=== PATIENT | male | born 1965 | race African-American/Black ===

== ENCOUNTER 2022-03-15 14:51 | Emergency (ER) | payer MEDICAID ==
[~2022-03-15] VITALS: Ht 175.3 cm; Wt 77.1 kg
[~2022-03-15 14:51] MED LIST: PARO-154 PO
[2022-03-15] MEDS ORDERED: MAG HYDROX/AL HYDROX/SIMETH 30 ML LIQUID UDC PO ONE (15:00)
[2022-03-15] MEDS ORDERED: FAMOTIDINE. 20 MG/2 ML VIAL IV ONE ×2 (15:00→15:06)
--- NOTE | 2022-03-15 15:00 | NUR ---
Pt ambulatory to room 2A, c/o lower abd pain and diarrhea x 2 hrs. Pt has hx of peptic ulcer, states sudden onset of pain today. Pt seen and examined by .
[2022-03-15] MEDS ORDERED: MAG HYDROX/AL HYDROX/SIMETH 30 ML LIQUID UDC ONE (15:06)
[2022-03-15] MEDS ORDERED: KETOROLAC TROMETHAMINE 30 MG INJ IVP ONE (15:15)
[2022-03-15] MEDS ORDERED: KETOROLAC TROMETHAMINE 30 MG INJ ONE (15:16)
[2022-03-15 15:22] LABS: HEMATOCRIT 39.2 % (36.7-47.1); MEAN CORPUSCULAR HEMOGLOBIN 26.4 uug (23.8-33.4); MEAN CORPUSCULAR VOLUME 78.9 fL (73.0-96.2); PLATELET COUNT (AUTO) 240 K/uL (152-348)
[2022-03-15] MEDS ORDERED: MORPHINE SULFATE 4 MG/1 ML DISP.SYRIN IV ONE (15:30)
[2022-03-15] MEDS ORDERED: MORPHINE SULFATE 4 MG/1 ML DISP.SYRIN ONE (15:30)
[2022-03-15 15:31] LABS: CREATININE 0.9 mg/dL (0.6-1.3); POTASSIUM 3.8 mmol/L (3.5-5.1)
[2022-03-15] MEDS ORDERED: SWABABLE VALVE TRANSFER SET EA MC ONE (15:41)
[2022-03-15] MEDS ORDERED: IOHEXOL 300MG/ML 100 ML INFUS..BTL ONE (15:41)
[2022-03-15] MEDS ORDERED: IV NORMAL SALINE 250 ML IV ONE (15:41)
[2022-03-15] MEDS ORDERED: IV NORMAL SALINE 500 ML BAG IV ONE (15:45)
[2022-03-15 15:46] LABS: BILIRUBIN,TOTAL 0.8 mg/dL (0.2-1.0); TOTAL PROTEIN, SERUM 7.6 g/dL (6.4-8.2)
[2022-03-15 18:00] LABS: *BILIRUBIN,URIN NEGATIVE (NEGATIVE); *BLOOD, URINE 3+ (NEGATIVE); *CLARITY,URINE SLIGHTLY CLOUDY (CLEAR); *COLOR,URINE YELLOW (YELLOW); *KETONES,URINE NEGATIVE (NEGATIVE); *UROBILINOGEN,URINE 0.2 E.U./dl (NORMAL); LEUKOCYTE ESTERASE ,URINE NEGATIVE (NEGATIVE); NITRITE, URINE NEGATIVE (NEGATIVE); PH,URINE 8.5 (5.0-8.0); UGLUCOSE NEGATIVE (NEGATIVE)
[2022-03-15] MEDS ORDERED: HYDR-3980 PO (19:32)
[2022-03-15] MEDS ORDERED: KETO10TA2 PO (19:32)
[2022-03-15] MEDS ORDERED: PROC10TA29 PO (19:32)
--- NOTE | 2022-03-15 20:04 | NUR ---
Patient discharged to home in stable condition. Written and verbal after care instructions given. Patient verbalizes understanding of instructions. Stressed follow up or return to ER for worsening s/s. Patient walked out with steady gait.
[2022-03-15 20:07] VITALS: BP 134/86
[2022-03-15 22:41] LABS: BACTERIA,URINE NONE SEEN /HPF (NONE SEEN); RBC,URINE TNTC /HPF (0-3); SQUAMOUS EPITHELIAL CELL,UR FEW /HPF (NONE SEEN); WBC,URINE 0-3 /HPF (0-3)
== END 2022-03-15 20:09 | disposition home or self-care (01) ==
LOC: ER 14:51
DX: N13.2 Hydronephrosis with renal and ureteral calculous obstruction (principal); Z87.442 Personal history of urinary calculi; Z87.11 Personal history of peptic ulcer disease; F32.A Depression, unspecified; Z79.899 Other long term (current) drug therapy
CPT/HCPCS: 99285; 74177; 96374; 96375; 96361; 80053; 81001; 82248; 83690; 85025; 36415; 83605 ×2; J3490; J1885; Q9967; J2270; J7040; A4663

== ENCOUNTER 2022-03-25 18:37 | Emergency (ER) | payer MEDICAID ==
[~2022-03-25] VITALS: Ht 175.3 cm; Wt 77.1 kg
[~2022-03-25 18:37] MED LIST changes: +HYDR-3980 PO; +KETO10TA2 PO; +PROC10TA29 PO
--- NOTE | 2022-03-25 18:55 | NUR ---
PT IS IN ROOM #1A. DR LIU EVALUATED THE PT.
[2022-03-25 19:25] LABS: *BILIRUBIN,URIN NEGATIVE (NEGATIVE); *BLOOD, URINE 3+ (NEGATIVE); *CLARITY,URINE CLOUDY (CLEAR); *COLOR,URINE YELLOW (YELLOW); *KETONES,URINE NEGATIVE (NEGATIVE); *UROBILINOGEN,URINE 0.2 E.U./dl (NORMAL); LEUKOCYTE ESTERASE ,URINE NEGATIVE (NEGATIVE); NITRITE, URINE NEGATIVE (NEGATIVE); UGLUCOSE NEGATIVE (NEGATIVE)
[2022-03-25 19:25] LABS: HEMATOCRIT 38.8 % (36.7-47.1); MEAN CORPUSCULAR HEMOGLOBIN 26.6 uug (23.8-33.4); PLATELET COUNT (AUTO) 245 K/uL (152-348)
--- NOTE | 2022-03-25 19:27 | NUR ---
sent urine to lab.
[2022-03-25 19:45] LABS: BACTERIA,URINE NONE SEEN /HPF (NONE SEEN); SQUAMOUS EPITHELIAL CELL,UR FEW /HPF (NONE SEEN); WBC,URINE NONE SEEN /HPF (0-3)
[2022-03-25 19:46] LABS: RBC,URINE 50-80 /HPF (0-3)
[2022-03-25 20:01] LABS: CREATININE 1.1 mg/dL (0.6-1.3); POTASSIUM 4.4 mmol/L (3.5-5.1)
[2022-03-25] MEDS ORDERED: HYDROMORPHONE 1 MG/1 ML DISP.SYRIN IM ONE ×2 (20:15→21:45)
[2022-03-25] MEDS ORDERED: ONDANSETRON HCL 4 MG TABLET PO ONE (20:15)
[2022-03-25] MEDS ORDERED: ONDANSETRON HCL 4 MG TABLET ONE (20:19)
[2022-03-25] MEDS ORDERED: HYDROMORPHONE 2 MG/1 ML DISP.SYRIN ONE ×2 (20:19→21:57)
[2022-03-25] MEDS ORDERED: HYDR-3980 PO (21:57)
[2022-03-25 22:40] VITALS: BP 123/80
--- NOTE | 2022-03-25 22:40 | NUR ---
Patient discharged to home in stable condition. Written and verbal after care instructions given. Patient verbalizes understanding of instructions. Stressed follow up or return to ER for worsening s/s.
== END 2022-03-25 22:56 | disposition home or self-care (01) ==
LOC: ER 18:48
DX: N20.0 Calculus of kidney (principal); F32.A Depression, unspecified; Z79.899 Other long term (current) drug therapy; Z87.442 Personal history of urinary calculi; Z87.11 Personal history of peptic ulcer disease
CPT/HCPCS: 99284; 80048; 81001; 85025; 36415; 74018; 96372 ×2; J1170 ×2; A4663; Q0162